=== PATIENT | female | born 1955 | race Caucasian/White ===

== ENCOUNTER → 2025-10-03 08:24 | Outpatient (REF) | payer BC, SELFPAY ==
[2025-10-03 10:00] LABS: Blood Urea Nitrogen 19 mg/dl (7-17); Calcium 9.7 mg/dl (8.4-10.2); Carbon Dioxide 29 mmol/L (22-30); Chloride 102 mmol/L (98-107); Glucose 119 mg/dl (70-99); Potassium 3.9 mmol/L (3.5-5.1); Sodium 137 mmol/L (135-145); eGFR > 60.00
== END ==
LOC: REG 08:24
PROVIDERS: ATTENDING PHYSICIAN Nurse Practitioner Family; FAMILY PHYSICIAN Family Medicine
DX: E23.7 Disorder of pituitary gland, unspecified (principal); E22.0 Acromegaly and pituitary gigantism; Z91.89 Other specified personal risk factors, not elsewhere classified
CPT/HCPCS: 36415; 80048; 83003; 83935